=== PATIENT | male | born 1990 | race Caucasian/White ===

== ENCOUNTER 2021-04-21 19:19 | Emergency (ER) | payer OTHER, SELFPAY ==
--- NOTE | ~2021-04-21 | XR_ITS ---
XR chest 2V DATE: 04/21/2021 19:58 INDICATION: Intermittent chest tightness for one month. Shortness of breath and cough today. Smoker. TECHNIQUE: PA and lateral views COMPARISON: None FINDINGS: Normal heart size. No hilar or mediastinal enlargement. No pulmonary infiltrate or consolid ation, pleural effusion or pulmonary vascular congestion or pneumothorax. IMPRESSION: Negative Reviewed, dictated and finalized at location A. 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
[2021-04-21 19:22] VITALS: BP 167/93; PULSE 90; RESP 18; TEMP 36.7; O2SAT 100
--- NOTE | 2021-04-21 19:27 | ECG_ITS ---
Measurements Intervals [place] Rate: 71 P: 45 GA: 147 QRS: 72 QRSD: 118 T: 36 QT: 398 QTc: 435 Interpretive Statements SINUS RHYTHM WITH SINUS ARRHYTHMIA INCOMPLETE RIGHT BUNDLE BRANCH BLOCK BORDERLINE ECG Electronically Signed On 04-21-2021 20:26:45 UNCLAIMED PROPERTY MANAGER by Efrain Shelton D.O.
[2021-04-21 19:52] LABS: Basophils Absolute Auto 0.1 K/mm3 (0.0-0.1); Basophils Percent Auto 1.2 % (0.2-1.2); Eosinophils Absolute Auto 0.6 K/mm3 (0-0.3); Hematocrit 41.7 % (42.0-52.0); Hemoglobin 14.1 g/dL (14.0-18.0); Immature Granulocyte Absolute 0.07 K/mm3 (0.00-0.031); Immature Granulocyte Percent A 0.8 % (0-0.5); Lymphocytes Absolute Auto 2.49 K/mm3 (0.9-3.2); Lymphocytes Percent Auto 27.6 % (18.3-44.2); Mean Corpuscular HGB Conc 33.8 g/dl (32-36); Mean Corpuscular Hemoglobin 29.7 pg (26-34); Mean Corpuscular Volume 87.8 fl (80-100); Mean Platelet Volume 11.2 fl (7.4-10.4); Monocytes Absolute Auto 0.8 K/mm3 (0.1-0.6); Monocytes Percent Auto 9.2 % (2.6-8.5); Neutrophils Absolute Auto 4.9 K/mm3 (1.3-6.7); Neutrophils Percent Auto 54.2 % (45.5-73.1); Platelet Count Result 345 k/mm3 (150-375); Red Blood Count 4.75 M/mm3 (4.6-6.20)
[2021-04-21 20:02] LABS: Alanine Aminotransferase 33 U/L (4-50); Albumin Level 4.5 g/dL (3.5-5.1); Alkaline Phosphatase 60 U/L (38-126); Anion Gap 9 mmol/L (8-16); Aspartate Amino Transferase 31 U/L (17-59); Bilirubin,Total 0.8 mg/dL (0.2-1.3); Blood Urea Nitrogen 14 mg/dL (9-20); Carbon Dioxide 26 mmol/L (22-30); Chloride 103 mmol/L (98-107); Estimated CRCL calculation 111 ml/min; Estimated Glomerular Filt Rate > 60; Glucose 98 mg/dL (65-110); Lipase 51 U/L (23-300); Potassium 4.2 mmol/L (3.4-5.0); Sodium 138 mmol/L (137-145)
[2021-04-21 20:03] LABS: Prothrombin Time 13.4 Seconds (11.1-14.7)
[2021-04-21 20:04] LABS: Partial Thromboplastin Time 33.7 SECONDS (22.3-36.8)
[2021-04-21 20:14] LABS: Troponin I < 0.012 ng/mL (0.000-0.034)
--- NOTE | 2021-04-22 00:22 | ED.GENADULT ---
HPI - General Adult General Chief complaint: Chest Pain Stated complaint: chest tightness Time Seen by Provider: 04/22/21 00:15 History of Present Illness HPI narrative: Patient is a 30-year-old gentleman who presents the emergency department with chief complaint of chest discomfort. The patient states throughout the day has been having episodes where his had discomfort in his chest does report this from radiation denies diaphoresis reports that he does have history of reflux and also anxiety patient states that the discomfort is essentially gone at this point. The patient denies vomiting denies abdominal pain denies fever the patient reports that the symptoms are not worsened by anything or they improved by anything. Related Data Allergies Allergy/AdvReac Type Severity Reaction Status Date / Time No Known Allergies Allergy Verified 04/21/21 19:26 Review of Systems Review of Systems: A 10 system review of systems was completed on the patient and is negative except for what is stated in the HPI. Nursing and ancillary documentation was reviewed. Exam Narrative: GENERAL: Well-appearing, well-nourished, and in no acute distress. HEAD: Normocephalic, atraumatic. EYES: PERRLA and EOMI. ENT: Nares clear, no rhinorrhea or epistaxis. Mucous membranes moist. NECK: Supple. CHEST: Clear to auscultation. No respiratory distress. HEART: Regular rate and rhythm. No murmur heard. Normal peripheral pulses. ABDOMEN: Soft, nontender, nondistended, normal active bowel sounds. EXTREMITIES: Normal range of motion. No edema. SKIN: Warm, dry, no rash. NEURO: No focal deficits. Alert and oriented x3. PSYCH: Normal mood and affect. Course Course Emergency Course: EKG is sinus rhythm rate of [address] elevation or ST depression, incomplete right bundle branch block Vital Signs Vital signs: Vital Signs Temperature 36.7 C 04/21/21 19:22 Pulse Rate 90 04/21/21 19:22 Respiratory Rate 18 04/21/21 19:22 Blood Pressure 167/93 H 04/21/21 19:22 Pulse Oximetry 100 04/21/21 19:22 Temperature 36.7 C 04/21/21 19:22 Pulse Rate 90 04/21/21 19:22 Respiratory Rate 18 04/21/21 19:22 Blood Pressure 167/93 H 04/21/21 19:22 Pulse Oximetry 100 04/21/21 19:22 Medical Decision Making Vital Signs Vital Signs: Vital Signs Temperature 36.7 C 04/21/21 19:22 Pulse Rate 90 04/21/21 19:22 Respiratory Rate 18 04/21/21 19:22 Blood Pressure 167/93 H 04/21/21 19:22 Pulse Oximetry 100 04/21/21 19:22 Temperature 36.7 C 04/21/21 19:22 Pulse Rate 90 04/21/21 19:22 Respiratory Rate 18 04/21/21 19:22 Blood Pressure 167/93 H 04/21/21 19:22 Pulse Oximetry 100 04/21/21 19:22 Lab Data Result diagrams: 04/21/21 19:46 04/21/21 19:46 Labs: Lab Results 04/21/21 04/21/21 04/21/21 Range/Units 19:46 19:46 19:46 WBC 9.0 (4.5-10.0) K/mm3 RBC 4.75 (4.6-6.20) M/mm3 Hgb 14.1 (14.0-18.0) g/dL Hct 41.7 L (42.0-52.0) % MCV 87.8 (80-100) fl MCH 29.7 (26-34) pg MCHC 33.8 (32-36) g/dl RDW 13.0 (11.5-14.5) % Plt Count 345 (150-375) k/mm3 MPV 11.2 H (7.4-10.4) fl Immature Gran % (Auto) 0.8 H (0-0.5) % Neut % (Auto) 54.2 (45.5-73.1) % Lymph % (Auto) 27.6 (18.3-44.2) % [place] % (Auto) 9.2 H (2.6-8.5) % Eos % (Auto) 7.0 H (0-4.4) % Baso % (Auto) 1.2 (0.2-1.2) % Lymph # (Auto) 2.49 (0.9-3.2) K/mm3 [place] # (Auto) 0.8 H (0.1-0.6) K/mm3 Eos # (Auto) 0.6 H (0-0.3) K/mm3 Baso # (Auto) 0.1 (0.0-0.1) K/mm3 Abs Immat Gran (auto) 0.07 H (0.00-0.031) K/mm3 Absolute Neuts (auto) 4.9 (1.3-6.7) K/mm3 Absolute Nucleated RBC 0.0 (0.0-0.012) K/mm3 Nucleated RBC % 0.0 (0.0-0.2) % PT 13.4 (11.1-14.7) Seconds INR 1.0 APTT 33.7 (22.3-36.8) SECONDS Sodium 138 (137-145) mmol/L Potassium 4.2 (3.4-5.0) mmol/L Chloride 103 (98-107) mmol/L Carbon Dioxide 26
[2021-04-22 00:30] VITALS: BP 144/89; PULSE 77; RESP 18; O2SAT 100
== END 2021-04-22 00:36 | disposition home or self-care (01) ==
PROVIDERS: Emergency Medicine; Emergency Provider Emergency Medicine; PCP Family Medicine
DX: R07.89 Other chest pain (principal); K21.9 Gastro-esophageal reflux disease without esophagitis; I45.10 Unspecified right bundle-branch block
CPT/HCPCS: 36415; 71046; 80053; 83690; 84484; 85025; 85610; 85730; 93005; 99284

== ENCOUNTER 2023-03-27 12:55 | Emergency (ER) | payer OTHER, SELFPAY ==
[2023-03-27 12:57] VITALS: BP 178/93; PULSE 66; RESP 16; TEMP 36.4; O2SAT 100
[2023-03-27 13:33] LABS: Basophils Absolute Auto 0.1 K/mm3 (0.0-0.1); Basophils Percent Auto 1.1 % (0.2-1.2); Eosinophils Absolute Auto 0.7 K/mm3 (0-0.3); Eosinophils Percent Auto 8.4 % (0-4.4); Hematocrit 45.8 % (42.0-52.0); Hemoglobin 14.5 g/dL (14.0-18.0); Immature Granulocyte Absolute 0.05 K/mm3 (0.00-0.031); Immature Granulocyte Percent A 0.6 % (0-0.5); Lymphocytes Absolute Auto 1.75 K/mm3 (0.9-3.2); Lymphocytes Percent Auto 21.6 % (18.3-44.2); Mean Corpuscular HGB Conc 31.7 g/dl (32-36); Mean Corpuscular Hemoglobin 29.1 pg (26-34); Mean Corpuscular Volume 91.8 fl (80-100); Mean Platelet Volume 11.9 fl (7.4-10.4); Monocytes Absolute Auto 0.6 K/mm3 (0.1-0.6); Monocytes Percent Auto 7.8 % (2.6-8.5); Neutrophils Absolute Auto 4.9 K/mm3 (1.3-6.7); Neutrophils Percent Auto 60.5 % (45.5-73.1); Platelet Count Result 308 k/mm3 (150-375); Red Blood Count 4.99 M/mm3 (4.6-6.20); Red Cell Distribution Width 13.1 % (11.5-14.5); White Blood Count 8.1 K/mm3 (4.5-10.0)
[2023-03-27 13:34] LABS: Appearance Urine Clear (Clear); Bilirubin Urine Negative (Negative); Blood Urine Negative (Negative); Color Urine Yellow (Yellow); Glucose Urine UA Negative (Negative); Ketones Urine Negative (Negative); Leukocyte Esterase Ur Negative LEU/UL (Negative); Nitrate Urine Negative (Negative); Protein Urine Negative (Negative); Specific Grav Ur 1.008 (1.001-1.035); Urobilinogen Urine 0.2 mg/dL (<2.0)
[2023-03-27 13:36] LABS: Add Urine Microscopic? NO
[2023-03-27 13:42] LABS: Alanine Aminotransferase 38 U/L (6-50); Albumin Level 4.9 g/dL (3.5-5.1); Alkaline Phosphatase 61 U/L (38-126); Anion Gap 8 mmol/L (8-16); Aspartate Amino Transferase 71 U/L (17-59); Bilirubin,Total 1.1 mg/dL (0.2-1.3); Blood Urea Nitrogen 15 mg/dL (9-20); Calcium 9.5 mg/dL (8.4-10.2); Carbon Dioxide 27 mmol/L (22-30); Chloride 104 mmol/L (98-107); Estimated CRCL calculation 91 ml/min; Estimated Glomerular Filt Rate > 60; Glucose 92 mg/dL (65-110); Lipase 67 U/L (23-300); Potassium 4.1 mmol/L (3.4-5.0); Sodium 139 mmol/L (137-145)
[2023-03-27 14:13] VITALS: BP 137/92; PULSE 74; RESP 17; O2SAT 100
--- NOTE | 2023-03-27 14:22 | ED.ABDPAIN ---
HPI - Abdominal Pain General Chief Complaint: Abdominal Pain Stated Complaint: abd pain Time Seen by Provider: 03/27/23 13:27 History of Present Illness HPI narrative: Patient is a 32-year-old male presenting with abdominal pain. Patient states that for the last year or so he has had intermittent abdominal pain. States it is mostly in his epigastrium. States it feels like burning and sharp pain sometimes associated with nausea. He has not noticed a clear pattern of alleviating or exacerbating factors. States he does have chronic problems of diarrhea and constipation alternating. States that the pain has gotten worse over the last several weeks so he became concerned and wanted to be evaluated. States that he saw an ENT doc sometime last year who told him that he did see signs of GERD. he was prescribed omeprazole at that time but never took it. States that the pain currently is not very bad. No nausea or vomiting. No chest pain, fevers, cough, shortness of breath, flank pain, hematuria. Reports intermittent dysuria. Related Data Allergies Allergy/AdvReac Type Severity Reaction Status Date / Time No Known Allergies Allergy Verified 04/21/21 19:26 Review of Systems Review of Systems: All systems reviewed & are unremarkable except as noted in HPI and below Exam Narrative: GENERAL: Well-appearing, In no acute distress, pleasant and cooperative HEAD: Normocephalic, atraumatic. EYES: PERRLA and EOMI. ENT: Mucous membranes moist. NECK: Supple. CHEST: Clear to auscultation. No respiratory distress. HEART: Regular rate and rhythm. ABDOMEN: Soft, nontender, nondistended EXTREMITIES: Normal range of motion. SKIN: Warm, dry, no rash. NEURO: Alert and oriented x3. PSYCH: Normal mood and affect. Course Vital Signs Vital signs: Vital Signs Temperature 97.6 F 03/27/23 12:57 Pulse Rate 66 03/27/23 12:57 Respiratory Rate 16 03/27/23 12:57 Blood Pressure 178/93 H 03/27/23 12:57 Pulse Oximetry 100 03/27/23 12:57 Oxygen Delivery Room Air 03/27/23 12:57 Temperature 97.6 F 03/27/23 12:57 Pulse Rate 73 03/27/23 14:37 Respiratory Rate 16 03/27/23 14:37 Blood Pressure 137/94 H 03/27/23 14:37 Pulse Oximetry 99 03/27/23 14:37 Oxygen Delivery Room Air 03/27/23 12:57 MDM - Abdominal Pain MDM Narrative Medical decision making narrative: 32-year-old male presenting with epigastric pain, nausea, diarrhea, constipation for about a year. Vitals are stable. Exam is unremarkable. Blood work is unremarkable as well. Normal renal function. Normal LFTs and lipase. UA is unremarkable. given the history of chronic intermittent abdominal pain in his epigastrium associated with nausea and alternating diarrhea and constipation, most concerning for GERD and or IBS. Will restart him on omeprazole, strongly advised him to take it as prescribed. Will also trial some dicyclomine to be used as needed. States that he has an appointment with his PCP next week. Will also provide the number for GI. Appropriate return precautions given. Discharged in stable condition. Differential Diagnosis Differential diagnosis: Likely abdominal pain, constipation, gastroenteritis, pancreatitis and other (UTI, JOSE, IBS, GERD) Medical Records Attestation: I reviewed the patient's medical records. Lab Data Attestation: I reviewed the patient's lab results. 03/27/23 13:24 03/27/23 13:24 Labs: Lab Results 03/27/23 Range/Units 13:24 WBC 8.1 (4.5-10.0) K/mm3 RBC 4.99 (4.6-6.20) M/mm3 Hgb 14.5 (14.0-18.0) g/dL Hct 45.8 (42.0-52.0) % MCV 91.8 (80-100) fl MCH 29.1 (26-34) pg MCHC 31.7 L (32-36) g/dl RDW 13.1 (11.5-14.5) % Plt Count 308 (150-375) k/mm3 MPV 11.9 H (7.4-10.4) fl Immature Gran % (Auto) 0.6 H (0-0.5) % Neut % (Auto) 60.5 (45.5-73.1) % Lymph % (Auto) 21.6 (18.3-44.2) % [place] % (Auto) 7.8 (2.6-8.5) % Eos % (Auto) 8.4 H (0-4.4
[2023-03-27 14:37] VITALS: BP 137/94; PULSE 73; RESP 16; O2SAT 99
== END 2023-03-27 14:37 | disposition home or self-care (01) ==
PROVIDERS: Emergency Medicine; Emergency Provider Emergency Medicine; PCP Family Medicine
DX: R10.13 Epigastric pain (principal); R11.0 Nausea
CPT/HCPCS: 36415; 80053; 81003; 83690; 85025; 99283

== ENCOUNTER 2023-05-01 00:25 | Day surgery (SDC) | payer OTHER, SELFPAY ==
[2023-04-18 09:04] VITALS: BMI 33.5
--- NOTE | 2023-04-28 08:20 | SUR.PREOP ---
Patient called regarding upcoming procedure. Reviewed preop instructions, appointment times, and procedure prep.
--- NOTE | 2023-04-28 15:36 | PM.HPGS ---
History of Present Illness History of Present Illness Consent: Risks, benefits, and alternatives have been discussed and questions answered. Patient agrees to proceed with procedure. Chief complaint: epigastric pain,diarrhea,nausea Narrative: Flaco Nunes is a 32 year old male Was referred for investigation of epigastric pain and diarrhea. Typically the pain would be present in the morning particularly after he eats his 1st meal. The diarrhea is often urgent and he will have several loose stools per day. he will however have normal bowel movements in between. Often loose stool follow The morning episode of nausea. This began about 1 year ago. He had been seen in the emergency room 5 weeks ago. He was given a prescription for dicyclomine which she does not feel helped. He also was given a prescription for omeprazole but did not take that. Review of Systems Review of Systems: All systems reviewed & are unremarkable except as noted in HPI and below PMFSH Past Medical History Medical History Diarrhea Epigastric pain Social History Social History Smoking status: Current some day smoker Additional smoking assessment comments: Social smoker Alcohol intake: current Drinks per week: 2 Alcohol use details: Ocassionally Substance use: current Substance use type: marijuana Last use: 01/2023 Living arrangements: alone Meds Home Medications and Allergies Home Medications Medication Instructions Recorded Confirmed Type dicyclomine 20 mg tablet 20 mg PO QID PRN abdominal pain 03/27/23 04/18/23 Rx #20 tabs omeprazole 20 mg capsule,delayed 20 mg PO DAILY #30 caps 03/27/23 04/18/23 Rx release levothyroxine 50 mcg tablet 50 mcg PO DAILY 04/11/23 04/18/23 History Allergies Allergy/AdvReac Type Severity Reaction Status Date / Time No Known Allergies Allergy Verified 05/01/23 12:52 Exam Const: General: alert Orientation/consciousness: patient oriented x3 Resp: Auscultation: clear to auscultation bilaterally Cardio: Rhythm: regular rhythm GI: GI Palp: Yes Soft to palpation and No Tenderness to palpation present (GI) Neuro: General: patient oriented x3 Assessment and Plan Assessment and plan (1) Epigastric pain: Code(s): R10.13 - Epigastric pain Status: Acute Assessment and Plan: EGD with possible biopsy or dilatation or cautery. (2) Diarrhea: Code(s): R19.7 - Diarrhea, unspecified Status: Acute Assessment and Plan: Colonoscopy with possible biopsy or polypectomy or cautery or injection of substances.
[2023-05-01 12:53] VITALS: BP 145/92; PULSE 69; RESP 20; TEMP 36.3; O2SAT 98; BMI 33.1
--- NOTE | 2023-05-01 13:04 | WPDANESEPPF ---
Anes - Initial Pre Proc Eval Procedure: Operation Date: 05/01/23 14:00 Proposed Procedures p Esophagogastroduodenoscopy & Colonoscopy - Wilman Soto MD Date/Time: 05/01/23 13:04 Surgeon: Wilman Soto MD Pre Op Diagnosis: epigastric pain,diarrhea,nausea Patient Data Age: 32 Gender: M Height: 1.78 m Weight: 104.8 kg Last Vital Signs Temp 97.4 F L 05/01/23 12:53 Pulse 69 05/01/23 12:53 Resp 20 05/01/23 12:53 BP 145/92 H 05/01/23 12:53 Pulse Ox 98 05/01/23 12:53 O2 Del Method Room Air 05/01/23 12:53 Allergies Allergy/AdvReac Type Severity Reaction Status Date / Time No Known Allergies Allergy Verified 05/01/23 12:52 Home Medications Medication Instructions Recorded Confirmed Type dicyclomine 20 mg tablet 20 mg PO QID PRN abdominal pain 03/27/23 04/18/23 Rx #20 tabs omeprazole 20 mg capsule,delayed 20 mg PO DAILY #30 caps 03/27/23 04/18/23 Rx release levothyroxine 50 mcg tablet 50 mcg PO DAILY 04/11/23 04/18/23 History Patient hx anesthesia problems: none Family hx anesthesia problems: none Results Review: All pre-operative results and documents have been reviewed as part of the pre-operative evaluation. [facility] Past Medical History Medical History (Updated 04/11/23 @ 09:12 by ALLAN Rivera) Diarrhea Epigastric pain Social History Social History Smoking status: Current some day smoker Additional smoking assessment comments: Social smoker Alcohol intake: current Drinks per week: 2 Alcohol use details: Ocassionally Substance use: current Substance use type: marijuana Last use: 01/2023 Living arrangements: alone Anes - Eval Final PreProcedure Day of Procedure 05/01/23 13:04 Patient weight: obese Heart: regular rate and rhythm Lungs: clear to auscultation Airway: Mallampati scale class II Neurological: alert and oriented Last oral intake: >/= 8 hours ASA classification: II Emergent: no Anesthetic plan: proceed Anesthesia type and monitoring: general GIVS and standard monitoring Results Review: All pre-operative results and documents have been reviewed as part of the pre-operative evaluation. Informed Consent: The patient's anesthetic plan and its attendant risks and benefits were discussed with the patient/family/POA. Questions were solicited and answers provided to the satisfaction of the patient/family/POA.
[2023-05-01] MEDS: LACTATED RINGERS 1,000 ML 150 ML IV CONT (13:08)
--- NOTE | 2023-05-01 13:57 | SUR.OPER ---
EGD START: 1348; END: 1352. COLONOSCOPY START: 1357; END: 1403.
[2023-05-01] MEDS: SIMETHICONE ORAL SUSPENSION 20 MG/0.3 ML 30 ML BOTTLE 0.6 ML IRRIGATION (14:00)
[2023-05-01 14:06] VITALS: BP 117/76; PULSE 80; RESP 14; O2SAT 100
[2023-05-01 14:16] VITALS: BP 112/76; PULSE 83; RESP 17; O2SAT 100
== END 2023-05-01 14:40 | disposition home or self-care (01) ==
PROVIDERS: PCP Family Medicine; Visit Provider Internal Medicine Gastroenterology
PROC: 0DJ08ZZ Inspection of Upper Intestinal Tract, Via Natural or Artificial Opening Endoscopic (ICD-10-PCS; CPT 43235; principal; 2023-05-01 14:00)
DX: K31.89 Other diseases of stomach and duodenum (principal); K64.8 Other hemorrhoids; E66.9 Obesity, unspecified; Z68.33 Body mass index [BMI] 33.0-33.9, adult; F12.90 Cannabis use, unspecified, uncomplicated
CPT/HCPCS: 43239; 45380; 87081; 88305; J2704; J7120

== ENCOUNTER 2024-08-21 11:43 | Outpatient (CLI) | payer OTHER, SELFPAY ==
--- NOTE | ~2024-08-21 | XR_ITS ---
EXAMINATION: XR chest 2V 08/21/2024 11:51 INDICATION: Chronic cough PROCEDURE: 2 view chest COMPARISON: 04/21/2021 FINDINGS: The lungs are clear. The cardiomediastinal silhouette is within normal limits. There are no pleural effusions. There is no pneumothorax suspected. IMPRESSION: 1: NO ACUTE CARDIOPULMONARY DISEASE. Reviewed, dictated and finalized at location A.
== END 2024-08-21 11:44 | disposition home or self-care (01) ==
LOC: MICIMG 11:45
PROVIDERS: PCP Nurse Practitioner Adult Health; Visit Provider Nurse Practitioner Adult Health
DX: R05.3 Chronic cough (principal); Z87.891 Personal history of nicotine dependence
CPT/HCPCS: 71046

== ENCOUNTER 2024-11-12 10:30 | Emergency (ER) | payer OTHER, SELFPAY ==
[2024-11-12 10:38] VITALS: BP 112/80; PULSE 71; RESP 16; TEMP 37; O2SAT 100
--- NOTE | 2024-11-12 10:39 | ED.SKABFB ---
HPI - Skin/Abscess/Foreign Bdy General Chief complaint: Skin/Abscess/Foreign Body Stated complaint: Poison Dinah Time Seen by Provider: 11/12/24 10:46 Source: patient, RN notes reviewed and old records reviewed Mode of arrival: ambulatory Limitations: no limitations History of Present Illness HPI narrative: 34-year-old male presents to the [facility] with concerns for poison dinah. Patient has it bilateral arms the worse, abdomen, back. No treatment prior to arrival Started 2-3 days ago Denies any chest pain shortness of breath. No lip or tongue involvement. 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 Related Data Home Medications ?Medication ?Instructions ?Recorded ?Confirmed ?Last Taken ?Type levothyroxine 50 mcg tablet 50 mcg PO DAILY 04/11/23 11/12/24 05/01/23 08:30 History Allergies Allergy/AdvReac Type Severity Reaction Status Date / Time No Known Allergies Allergy Verified 06/06/23 08:38 Review of Systems Review of Systems: All systems reviewed & are unremarkable except as noted in HPI and below Constitutional: Constitutional: Reports no additional constitutional complaints Cardiovascular: Cardiovascular: Denies chest pain and Denies dyspnea Respiratory: Respiratory: Reports no additional respiratory complaints, Denies chest congestion, Denies cough and Denies dyspnea Musculoskeletal: Musculoskeletal: Reports no additional musculoskeletal complaints Integumentary/Breasts: Skin/Breast: Reports as per HPI PMFSH Past Medical History Medical History Epigastric pain Diarrhea Social History Social History Smoking status: Current some day smoker Additional smoking assessment comments: Social smoker Alcohol intake: current Drinks per week: 2 Alcohol use details: Ocassionally Substance use: current Substance use type: marijuana Last use: 01/2023 Living arrangements: alone Comments At the time of my signature, I reviewed and agree with the nursing past medical, surgical, social, and family history. There is no relevant family history pertinent to the patient complaint. Exam Const: General: cooperative, healthy appearing, comfortable, no acute distress, well developed, alert and well nourished Nutritional Appearance: well nourished Orientation/consciousness: patient oriented x3 Limitations: no limitations HENMT: Head: normal to inspection Ears: hearing grossly normal bilaterally and external ears normal Face/Nose/Sinus: Normal external nose present Face and sinus: normal facial exam Mouth: Yes Normal oral and palatal mucosa present, Yes lip normal, Yes tongue normal and Yes moist mucous membranes Throat: posterior oropharynx normal, uvula midline and no uvular edema Eyes: General: appearance normal, both eyes and all related structures Alignment and Position: alignment normal Neck: Neck: normal visual inspection, full ROM, no lymphadenopathy and no meningeal signs Chest: Chest palpation & inspection: normal inspection of the chest Resp: Effort & Inspection: normal respiratory effort and able to speak in complete sentences Auscultation: clear to auscultation bilaterally, no crackles, no rales, no rhonchi and no wheezes Cardio: Rate: regular rate Back/Spine/Pelvis: Back: No back tenderness Skin: General skin exam: normal color and no rashes or lesions noted Other: Generalized red not raised itchy rash to arms, back, abdomen. The most consistent with a contact dermatitis Neuro: General: patient oriented x3, gait normal, moves all extremities and no meningeal signs Cognition (Neuro): normal cognition Speech: normal speech Gait exam (Neuro): Normal gait present Extrem: General: normal to inspection, full ROM, capillary refill normal and normal gait Psych: Appearance: grossly normal and well kempt Mental Status: mental status grossly normal Speech and movement: Normal speech and movement present and Clear speech present Affect: normal affect Attitude: cooperative Course Course Level of Care: Express Care Visit Vital Signs Vital signs: Vital Signs Temperature 98.6 F 11/12/24 10:38 Pulse Rate 71 11/12/24 10:38 Respiratory Rate 16 11/12/24 10:38 Blood Pressure 112/80 11/12/24 10:38 Pulse Oximetry 100 11/12/24 10:38 Temperature 98.6 F 11/12/24 10:38 Pulse Rate 71 11/12/24 10:38 Respiratory Rate 16 11/12/24 10:38 Blood Pressure 112/80 11/12/24 10:38 Pulse Oximetry 100 11/12/24 10:38 Reviewed MDM - Skin/Abscess/Foreign Bdy MDM Narrative Medical decision making narrative: Patient sitting comfortably in exam room. Patient is nontoxic, vitals stable patient presents with a rash generalized, no lip or tongue involvement. No shortness of breath. Patient is appropriate for outpatient treatment with close follow-up Discharge instructions reviewed with patient, as well as provided in writing per nursing staff. The instructions also include specific and strict return/GO TO THE ER as well as f/u information. All questions have been answered, and the patient deny any further questions with discharge and discharge plan. Some parts of this dictation were generated by voice recognition software and may contain typographical and/or grammatical inaccuracies. Differential Diagnosis Differential diagnosis: Likely abscess of skin or subcutaneous tissue, urticaria, allergic reaction to drug, cellulitis, eczema, insect bites and contact dermatitis Critical Care Time Critical Care Time Critical Care Time: No Discharge Plan Discharge Clinical Impression: Contact dermatitis Qualifiers: Contact dermatitis type: unspecified Contact dermatitis trigger: other trigger Qualified Code(s): L25.8 - Unspecified contact dermatitis due to other agents Patient Disposition: Home Condition: Stable Instructions: Contact Dermatitis (ED) Additional Instructions: The most important part of your care is follow up with Primary care provider. Take Benadryl 25-50 mg every 8 hours for itching Take Zyrtec/Claritin every day for 10 days Take Pepcid 20mg daily for 10 days days Take the steroids starting when you get them and then take every morning Avoid hot showers, Take cool showers. Hot showers will make rashes worse Apply cool compresses every 2-3 hours for 15 minutes Go to the ER for new or worsening symptoms such as shortness of breath. Patient Language: Luxembourgish Prescriptions: New prednisone 20 mg tablet See Rx Instructions .Route .COMPLEX Qty: 20 0RF Rx Instructions: Take 60 mg daily for 3 days, 40 mg daily for 3 days, 20 mg daily for 3 days, 10mg day for 3 days No Action levothyroxine 50 mcg tablet 50 mcg PO DAILY Follow-up/Referrals: PHYSICIAN,UTILITY SPECIALIST [Primary Care Provider, Internal Medicine] Stand Alone Forms: Work/School Release IP Time of Disposition: 10:54
== END 2024-11-12 10:57 | disposition home or self-care (01) ==
PROVIDERS: Emergency Provider Nurse Practitioner
DX: L25.8 Unspecified contact dermatitis due to other agents (principal); F17.200 Nicotine dependence, unspecified, uncomplicated
CPT/HCPCS: 99213; G0463